=== PATIENT | male | born 1995 | race African-American/Black ===

== ENCOUNTER 2016-07-21 20:25 | Emergency (ER) | payer OTHER ==
[2016-07-21] MEDS ORDERED: HYDROcod/ACETAM 5/325 MG TABLET PO STA (20:56)
[2016-07-21] MEDS ORDERED: HYDROcod/ACETAM 5/325 MG TABLET ONE (20:57)
== END 2016-07-21 21:33 | disposition home or self-care (01) ==
DX: S93.412A Sprain of calcaneofibular ligament of left ankle, initial encounter (principal); W19.XXXA Unspecified fall, initial encounter; Y93.67 Activity, basketball
CPT/HCPCS: 73610; 99283; A9270

== ENCOUNTER 2017-03-12 05:50 | Emergency (ER) | payer OTHER ==
[2017-03-12 06:00] VITALS: BP 148/83
[2017-03-12] MEDS ORDERED: ACETAMINOPHEN 325 MG TABLET PO STA (06:13)
[2017-03-12] MEDS ORDERED: IBUPROFEN 600 MG TABLET PO STA (06:13)
--- NOTE | 2017-03-12 06:16 | ED Physician Documentation ---
PD HPI LOWER EXT INJURY - Stated complaint Stated Complaint: R KNEE PX - Chief complaint Chief Complaint: Ext Problem - History obtained from History obtained from: Patient - History of Present Illness PD HPI LOW EXT INJURY LOCATION: Right, Knee Type of injury: Blunt / blow (playing football last evening and was struck by another player lateral right knee as he landed onto the planted right foot. Had pain lateral knee and also felt valgus strain. Pain with walking after and this mroning. No locking nor giving out. Hurts with walking and some twisting.) Timing - onset: Yesterday Timing - duration: Days (1) Timing - details: Abrupt onset, Still present Worsened by: Moving, Other (walking) Associated symptoms: Swelling (mild). No: Weakness, Numbness Similar symptoms before: Has not had sx before Recently seen: Not recently seen Review of Systems Skin: denies: Abrasion (s), Laceration (s) Neurologic: denies: Focal weakness, Numbness PD PAST MEDICAL HISTORY - Past Medical History Neuro: None Musculoskeletal: None - Past Surgical History Past Surgical History: Yes - Present Medications Home Medications: Ambulatory Orders Medication Instructions Recorded Confirmed Ibuprofen [Motrin] 800 mg PO Q8H PRN #30 tablet 07/21/16 Ibuprofen [Motrin] 600 mg PO TID #30 tab 03/12/17 - Allergies Allergies/Adverse Reactions: Allergies Allergy/AdvReac Type Severity Reaction Status Date / Time cefpodoxime proxetil * Allergy Unknown Verified 03/12/17 06:00 [From Nicole] - Social History Does the pt smoke?: No Smoking Status: Never smoker Does the pt drink ETOH?: No Does the pt have substance abuse?: No - Immunizations Immunizations are current?: Yes PD ED PE NORMAL - Vitals Vital signs reviewed: Yes - General General: Alert and oriented X 3, No acute distress, Well developed/nourished - Derm Derm: Normal color, Warm and dry - Extremities Extremities: Other (right knee without effusion. Tender lateral knee over fibular head area. Valgus stress causes some medial pain but no laxity noted. No cruciate pain nor laxity. ) - Neuro Neuro: No motor deficit, No sensory deficit Results - Vitals Vitals: Vital Signs - 24 hr 03/12/17 05:58 Temperature 36.7 C Heart Rate 81 Respiratory 16 Rate Blood Pressure 148/83 H O2 Saturation 100 Oxygen O2 Source Room air - Rads (name of study) right knee Radiology: Prelim report reviewed, EMP read contemporaneously (no fractures) PD MEDICAL DECISION MAKING - ED course Complexity details: reviewed results, considered differential (seems like sprain. No obvious injury of cruciates nor meniscus. Strain of MCL but no laxity. Mostly contusion laterally and some muscle strain as well. ), d/w patient Departure - Departure Disposition: Home, Self Care Clinical Impression: Knee strain Qualifiers: Encounter type: initial encounter Laterality: right Qualified Code(s): S86.911A - Strain of unspecified muscle(s) and tendon(s) at lower leg level, right leg, initial encounter Condition: Stable Record reviewed to determine appropriate education?: Yes Instructions: ED Sprain Knee Follow-Up: EVANS Bonilla [Provider Group] Prescriptions: Ibuprofen [Motrin] 600 mg PO TID #30 tab Comments: It does not feel like you have any significant injury of the knee (Cruciates and meniscus do not seem torn/injured). It is injured of course. Use knee brace when up and around for about a week. Ibuprofen three times daily. Less walking and standing for several days to a week for it to heal. Forms: Activity restrictions
[2017-03-12] MEDS ORDERED: IBUPROFEN 600 MG TABLET PO ONE (06:25)
[2017-03-12] MEDS ORDERED: ACETAMINOPHEN 325 MG TABLET PO ONE (06:25)
--- NOTE | 2017-03-12 06:45 | XRAY Preliminary Report ---
Exam: XR Knee 4 View RT IMPRESSION: 1. No acute fracture or dislocation seen. 2. Possible joint effusion. [facility] SITE ID: [id number]
--- NOTE | 2017-03-12 06:47 | XRAY Report ---
EXAM: RIGHT KNEE RADIOGRAPHY EXAM DATE: 03/12/2017 06:37 AM. CLINICAL HISTORY: Knee pain after injury. COMPARISON: None. TECHNIQUE: 4 views. FINDINGS: Bones: No acute fracture seen. Joints: No dislocation. Joint spaces appear intact. Possible joint effusion. Soft Tissues: Mild soft tissue swelling. IMPRESSION: 1. No acute fracture or dislocation seen. 2. Possible joint effusion. [facility] Referring Provider Line: [phone] SITE ID: [id number]
== END 2017-03-12 07:01 | disposition home or self-care (01) ==
LOC: ED 05:50
DX: S86.911A Strain of unspecified muscle(s) and tendon(s) at lower leg level, right leg, initial encounter (principal); W51.XXXA Accidental striking against or bumped into by another person, initial encounter; Y93.61 Activity, american tackle football
CPT/HCPCS: 29530; 73564; 99283; A9270

== ENCOUNTER 2017-05-04 09:43 | Outpatient (CLI) | payer OTHER ==
--- NOTE | 2017-05-04 13:25 | MRI Report ---
EXAM: RIGHT KNEE MRI WITHOUT CONTRAST EXAM DATE: 05/04/2017 10:54 AM. CLINICAL HISTORY: PAIN IN RT KNEE. INJURED RT KNEE PLAYING FOOTBALL 5 WEEKS AGO. COMPARISON: RIGHT KNEE RADIOGRAPHY 03/12/2017. TECHNIQUE: Multiplanar, multisequence T1-weighted and fluid-sensitive sequences of the knee without c ontrast. Other: None. FINDINGS: Bones: No fractures or subluxations. Bony trabecular injury with diffuse marrow edema in the lateral femoral condyle, both tibial plateaus and minimally in the medial femoral condyle. No bone lesions. Articular Cartilage: There is a 6 x 11 mm area of severe cartilaginous thinning and ureters is in the axial loading area of the lateral femoral condyle, suggestive of chondral injury. Medial Meniscus: The medial meniscus is intact. Lateral Meniscus: A complex tear in the posterior meniscal root of the lateral meniscus with horizont al and radial components. Cruciate Ligaments: Near full-thickness tear of the anterior cruciate ligament with only a thin stran d of continuous fibers remaining and the torn fibers retracted and clumped together anteriorly. The p osterior cruciate ligament is intact. Collateral Ligaments: Grade 2 sprain of the medial collateral and lateral collateral ligaments with i ntrasubstance and surrounding edema. Tendons: The quadriceps, patellar, semimembranosus, and popliteus tendons are unremarkable. Musculature: Muscular strain with mild edema in the popliteus and the lateral soleus. No fatty atroph y. Other: Moderate effusion with mild synovitis without hemarthrosis. No popliteal cyst. No loose bodies . The medial and lateral retinacula, patellofemoral ligaments and iliotibial band are intact. No bur sitis. The subcutaneous tissues and fat pads are unremarkable. IMPRESSION: 1. Recent trauma resulting in internal derangement and multiple abnormalities. 2. Bony trabecular injury with diffuse marrow edema in the lateral femoral condyle, both tibial plate aus and minimally in the medial femoral condyle. No fracture. 3. There is a 6 x 11 mm area of severe cartilaginous thinning and ureters is in the axial loading are a of the lateral femoral condyle, suggestive of chondral injury. 4. Near full-thickness tear of the anterior cruciate ligament with only a thin strand of continuous f ibers remaining. 5. Grade 2 sprain of the medial collateral and lateral collateral ligaments. 6. A complex tear in the posterior meniscal root of the lateral meniscus with horizontal and radial c omponents. 7. Moderate effusion with mild synovitis without hemarthrosis. 8. Muscular strain with mild edema in the popliteus and the lateral soleus. [facility] MUSCULOSKELETAL RADIOLOGY SECTION Referring Provider Line: [phone] SITE ID: [id number]
== END 2017-05-04 09:44 | disposition home or self-care (01) ==
LOC: DI 09:43
PROVIDERS: ATTEND Orthopaedic Surgery
DX: M23.91 Unspecified internal derangement of right knee (principal); M89.9 Disorder of bone, unspecified; S83.511A Sprain of anterior cruciate ligament of right knee, initial encounter; S83.421A Sprain of lateral collateral ligament of right knee, initial encounter; S83.411A Sprain of medial collateral ligament of right knee, initial encounter; S83.281A Other tear of lateral meniscus, current injury, right knee, initial encounter; M25.461 Effusion, right knee; S86.811A Strain of other muscle(s) and tendon(s) at lower leg level, right leg, initial encounter; M65.861 Other synovitis and tenosynovitis, right lower leg